=== PATIENT | female | born 1995 | race African-American/Black ===

== ENCOUNTER 2020-05-16 03:40 | Emergency (ER) | payer MEDICAID ==
[~2020-05-16] VITALS: Ht 170.2 cm; Wt 54.4 kg
[2020-05-16 03:50] VITALS: BP 125/82
== END 2020-05-16 07:38 | disposition left against medical advice (07) ==
LOC: EDBD 03:40 → ER 03:45
DX: R10.9 Unspecified abdominal pain (principal); R11.2 Nausea with vomiting, unspecified; Z53.21 Procedure and treatment not carried out due to patient leaving prior to being seen by health care provider